=== PATIENT | male | born 1965 | race Caucasian/White ===

== ENCOUNTER 2022-02-19 00:53 | Inpatient (IN) ==
[~2022-02-19 00:53] MED LIST: *HR* Heparin 10,000 UNIT/10 ML VIAL ONE; 0.9 % Sodium Chloride 2,000 ML ONE; Heparin 1,000 UNITS/500 mL 500 ML ONE; Iopamidol - 370 200 ML INFUS..BTL ONE; Nitroglycerin 1,000 MCG/5 ML VIAL IV ONE
[2022-02-19] MEDS ORDERED: Iopamidol - 370 500 ML MLS IVP ONE (00:58)
[2022-02-19] MEDS ORDERED: *HR* FentaNYL (PF) 100 MCG/2 ML VIAL IVP ONE ×2 (00:58→01:27)
[2022-02-19] MEDS ORDERED: *HR* Ticagrelor 90 MG TABLET PO ONE (01:08)
[2022-02-19] MEDS ORDERED: *HR* Heparin 5,000 UNIT/ML VIAL IVP ONE (01:08)
[2022-02-19] MEDS ORDERED: Iopamidol - 370 200 ML INFUS..BTL ONE ×2 (01:09→02:02)
[2022-02-19] MEDS ORDERED: *HR* Heparin 10,000 UNIT/10 ML VIAL ONE ×2 (01:09→01:51)
[2022-02-19] MEDS ORDERED: Nitroglycerin 1,000 MCG/5 ML VIAL IV ONE (01:09)
[2022-02-19] MEDS ORDERED: 0.9 % Sodium Chloride 1,000 ML ONE ×2 (01:09→01:20)
[2022-02-19] MEDS ORDERED: Heparin 1,000 UNITS/500 mL 500 ML ONE (01:09)
[2022-02-19 01:11] LABS: Basophils # 0.1 K/mcL (0.0-0.2); Basophils % 0.5 %; Eosinophils # 0.4 K/mcL (0.0-0.6); Eosinophils % 2.7 %; Hematocrit 42.7 % (37.5-50.1); Hemoglobin 14.4 g/dL (12.9-16.9); Immature Granulocytes % 0.6 % (0-4); Lymphocytes # 4.6 K/mcL (0.6-4.6); Lymphocytes % 31.5 %; Mean Corpuscular HGB Conc 33.7 g/dL (31.6-35.5); Mean Corpuscular Hemoglobin 32.4 pg (28.0-33.3); Mean Platelet Volume 9.1 fL (9.4-12.4); Monocytes # 1.3 K/mcL (0.0-1.3); Monocytes % 8.7 %; Neutrophils # 8.1 K/mcL (1.6-8.9); Platelet Count 315 K/mcL (140-400); Red Blood Count 4.45 M/mcL (4.19-5.50); Red Cell Distribution Width 13.9 % (11.5-14.5); White Blood Count 14.5 K/mcL (4.3-11.1)
[2022-02-19] MEDS ORDERED: Heparin 25,000UNIT/250ML 1/2NS 25,000 UNIT/250 ML IV.SOLN IVC SCH (01:15)
[2022-02-19] MEDS ORDERED: *HR* FentaNYL (PF) 100 MCG/2 ML VIAL ONE (01:20)
[2022-02-19] MEDS ORDERED: *HR* Midazolam HCl 2 MG/2 ML VIAL ONE (01:20)
[2022-02-19] MEDS ORDERED: Tirofiban 12.5 MG/250ML 12.5 MG/250 ML BAG ONE (01:20)
[2022-02-19] MEDS ORDERED: *HR* Atropine Sulfate 1 MG/10 ML SYRINGE ONE (01:21)
[2022-02-19 01:24] LABS: INR 1.1; Prothrombin Time 11.7 Seconds (9.4-12.1)
[2022-02-19 01:25] LABS: Heparin anti-factor XA UFH < 0.04 IU/mL (0.30-0.70)
[2022-02-19 01:27] LABS: Activated Partial Thrombo Time 26.4 Seconds (26.0-36.0)
[2022-02-19 01:33] LABS: Alanine Aminotransferase 12 Units/L (7-52); Albumin 3.9 g/dL (3.5-5.7); Albumin/Globulin Ratio 1.5 (1.1-2.2); Alkaline Phosphatase 63 Units/L (34-104); Aspartate Amino Transferase 12 Units/L (13-39); BUN/Creatinine Ratio 9 (6-26); Bilirubin,Total 0.4 mg/dL (0.3-1.0); Blood Urea Nitrogen 9 mg/dL (6-20); Calcium 8.4 mg/dL (8.6-10.3); Carbon Dioxide 27 mEq/L (23-29); Chloride 107 mEq/L (98-107); Globulin 2.6 g/dL (2.4-3.5); Glucose 111 mg/dL (70-105); Osmolality,Calculated 289 (280-300); Potassium 3.7 mEq/L (3.5-5.1); Sodium 140 mEq/L (136-145); Total Protein 6.5 g/dL (6.4-8.9)
[2022-02-19 01:34] LABS: Troponin I < 0.03 ng/mL (< 0.04)
[2022-02-19] MEDS ORDERED: Ondansetron 4 MG/2 ML VIAL ONE (01:40)
[2022-02-19 01:45] LABS: Platelet Estimate Normal (Normal)
[2022-02-19 05:54] LABS: Basophils # 0.1 K/mcL (0.0-0.2); Basophils % 0.3 %; Eosinophils % 0.2 %; Hematocrit 43.5 % (37.5-50.1); Hemoglobin 14.7 g/dL (12.9-16.9); Immature Granulocytes % 0.6 % (0-4); Lymphocytes # 1.4 K/mcL (0.6-4.6); Lymphocytes % 9.4 %; Mean Corpuscular HGB Conc 33.8 g/dL (31.6-35.5); Mean Corpuscular Hemoglobin 32.5 pg (28.0-33.3); Mean Corpuscular Volume 96.2 fL (83.0-100.0); Mean Platelet Volume 9.1 fL (9.4-12.4); Monocytes % 6.3 %; Neutrophils # 12.8 K/mcL (1.6-8.9); Platelet Count 300 K/mcL (140-400); Red Blood Count 4.52 M/mcL (4.19-5.50); Red Cell Distribution Width 13.9 % (11.5-14.5); Segmented Neutrophils % 83.2 %; White Blood Count 15.4 K/mcL (4.3-11.1)
[2022-02-19 06:09] LABS: BUN/Creatinine Ratio 14 (6-26); Blood Urea Nitrogen 11 mg/dL (6-20); Calcium 8.2 mg/dL (8.6-10.3); Carbon Dioxide 22 mEq/L (23-29); Chloride 107 mEq/L (98-107); Glucose 101 mg/dL (70-105); Osmolality,Calculated 280 (280-300); Potassium 4.4 mEq/L (3.5-5.1); Sodium 135 mEq/L (136-145)
[2022-02-19] MEDS ORDERED: Metoprolol XL (24 HR) Succ 25 MG TAB.ER.24H PO SCH (09:00)
[2022-02-19] MEDS: *HR* Ticagrelor 90 MG TABLET PO SCH ×2 (09:20→20:01)
[2022-02-19] MEDS: Aspirin 81 MG TAB.CHEW PO SCH (09:20)
[2022-02-19] MEDS: Metoprolol XL (24 HR) Succ 25 MG TAB.ER.24H PO SCH (09:21)
[2022-02-19] MEDS ORDERED: Metoprolol XL (24 HR) Succ 25 MG TAB.ER.24H PO ONE (09:28)
[2022-02-19] MEDS: lisinopriL 5 MG TABLET PO SCH (11:20)
[2022-02-19] MEDS ORDERED: levoFLOXacin 750 MG/150 ML 750 MG/150 ML BAG IVPB ONE (14:00)
[2022-02-20] MEDS: Metoprolol XL (24 HR) Succ 25 MG TAB.ER.24H PO SCH (07:56)
[2022-02-20] MEDS: *HR* Ticagrelor 90 MG TABLET PO SCH ×2 (07:56→20:27)
[2022-02-20] MEDS: Aspirin 81 MG TAB.CHEW PO SCH (07:56)
[2022-02-20] MEDS: lisinopriL 5 MG TABLET PO SCH (07:56)
[2022-02-20] MEDS ORDERED: Spironolactone 25 MG TABLET PO SCH (09:00)
[2022-02-20] MEDS: levoFLOXacin 750 MG TABLET PO SCH (10:09)
[2022-02-20 13:59] LABS: Basophils # 0.1 K/mcL (0.0-0.2); Basophils % 0.4 %; Eosinophils # 0.2 K/mcL (0.0-0.6); Eosinophils % 1.2 %; Hemoglobin 15.3 g/dL (12.9-16.9); Immature Granulocytes % 0.8 % (0-4); Lymphocytes # 1.5 K/mcL (0.6-4.6); Lymphocytes % 10.3 %; Mean Corpuscular Hemoglobin 31.7 pg (28.0-33.3); Mean Corpuscular Volume 93.4 fL (83.0-100.0); Mean Platelet Volume 9.2 fL (9.4-12.4); Monocytes # 1.1 K/mcL (0.0-1.3); Monocytes % 7.8 %; Neutrophils # 11.2 K/mcL (1.6-8.9); Platelet Count 302 K/mcL (140-400); Red Blood Count 4.82 M/mcL (4.19-5.50); Red Cell Distribution Width 13.5 % (11.5-14.5); Segmented Neutrophils % 79.5 %; White Blood Count 14.1 K/mcL (4.3-11.1)
[2022-02-20 14:44] LABS: BUN/Creatinine Ratio 13 (6-26); Blood Urea Nitrogen 12 mg/dL (6-20); Calcium 8.6 mg/dL (8.6-10.3); Carbon Dioxide 20 mEq/L (23-29); Chloride 107 mEq/L (98-107); Glucose 136 mg/dL (70-105); Osmolality,Calculated 282 (280-300); Sodium 135 mEq/L (136-145)
[2022-02-21 04:11] VITALS: TEMP 97.8; O2SAT 95
[2022-02-21 05:53] LABS: Basophils # 0.1 K/mcL (0.0-0.2); Basophils % 0.9 %; Eosinophils # 0.4 K/mcL (0.0-0.6); Eosinophils % 3.1 %; Hematocrit 46.4 % (37.5-50.1); Hemoglobin 15.8 g/dL (12.9-16.9); Immature Granulocytes % 1.4 % (0-4); Lymphocytes # 2.3 K/mcL (0.6-4.6); Mean Corpuscular HGB Conc 34.1 g/dL (31.6-35.5); Mean Corpuscular Hemoglobin 32.2 pg (28.0-33.3); Mean Corpuscular Volume 94.5 fL (83.0-100.0); Mean Platelet Volume 9.3 fL (9.4-12.4); Monocytes # 1.2 K/mcL (0.0-1.3); Monocytes % 9.9 %; Neutrophils # 7.5 K/mcL (1.6-8.9); Platelet Count 292 K/mcL (140-400); Red Blood Count 4.91 M/mcL (4.19-5.50); Red Cell Distribution Width 13.6 % (11.5-14.5); Segmented Neutrophils % 64.7 %; White Blood Count 11.6 K/mcL (4.3-11.1)
[2022-02-21] MEDS ORDERED: *HR* Heparin 5,000 UNIT/ML VIAL SQ SCH (06:00)
[2022-02-21 06:17] LABS: BUN/Creatinine Ratio 14 (6-26); Blood Urea Nitrogen 12 mg/dL (6-20); Calcium 8.7 mg/dL (8.6-10.3); Carbon Dioxide 23 mEq/L (23-29); Chloride 107 mEq/L (98-107); Glucose 93 mg/dL (70-105); Osmolality,Calculated 283 (280-300); Potassium 3.9 mEq/L (3.5-5.1); Sodium 137 mEq/L (136-145)
[2022-02-21 08:15] VITALS: BP 101/75
[2022-02-21] MEDS: *HR* Ticagrelor 90 MG TABLET PO SCH (08:16)
[2022-02-21] MEDS: levoFLOXacin 750 MG TABLET PO SCH (08:16)
[2022-02-21 08:26] VITALS: PULSE 79
[2022-02-21] MEDS ORDERED: Nicotine 14 MG PATCH.TD24 TD SCH (09:00)
[2022-02-21] MEDS ORDERED: Metoprolol XL (24 HR) Succ 25 MG TAB.ER.24H PO SCH (09:00)
[2022-02-21] MEDS ORDERED: Aspirin 81 MG TAB.CHEW PO SCH (09:00)
[2022-02-21] MEDS ORDERED: Spironolactone 25 MG TABLET PO SCH (09:00)
[2022-02-21] MEDS ORDERED: lisinopriL 5 MG TABLET PO SCH (09:00)
== END 2022-02-21 12:15 | disposition home or self-care (01) | DRG 246 ==
LOC: ICNU 00:53 → EMEROOARM 00:53 → ICNU 01:33
PROVIDERS: ADMIT Internal Medicine Interventional Cardiology; ATTEND Internal Medicine Cardiovascular Disease

== ENCOUNTER 2022-04-09 14:02 | Observation (INO) ==
[2022-04-09] MEDS ORDERED: Aspirin 81 MG TAB.CHEW PO ONE (14:11)
[2022-04-09] MEDS ORDERED: Iopamidol - 370 200 ML INFUS..BTL ONE (14:15)
[2022-04-09] MEDS ORDERED: *HR* Heparin 10,000 UNIT/10 ML VIAL ONE (14:15)
[2022-04-09] MEDS ORDERED: 0.9 % Sodium Chloride 2,000 ML ONE (14:15)
[2022-04-09] MEDS ORDERED: Heparin 1,000 UNITS/500 mL 500 ML ONE (14:15)
[2022-04-09] MEDS ORDERED: Nitroglycerin 1,000 MCG/5 ML VIAL IV ONE (14:15)
[2022-04-09] MEDS ORDERED: *HR* FentaNYL (PF) 100 MCG/2 ML VIAL ONE (14:35)
[2022-04-09] MEDS ORDERED: *HR* Midazolam HCl 2 MG/2 ML VIAL ONE (14:36)
[2022-04-09 14:40] LABS: Basophils # 0.1 K/mcL (0.0-0.2); Basophils % 0.8 %; Eosinophils # 0.2 K/mcL (0.0-0.6); Eosinophils % 2.3 %; Hematocrit 44.7 % (37.5-50.1); Immature Granulocytes % 0.7 % (0-4); Lymphocytes % 21.5 %; Mean Corpuscular HGB Conc 33.6 g/dL (31.6-35.5); Mean Corpuscular Hemoglobin 31.3 pg (28.0-33.3); Mean Corpuscular Volume 93.1 fL (83.0-100.0); Mean Platelet Volume 9.2 fL (9.4-12.4); Monocytes # 0.8 K/mcL (0.0-1.3); Monocytes % 8.8 %; Platelet Count 284 K/mcL (140-400); Red Cell Distribution Width 13.4 % (11.5-14.5); Segmented Neutrophils % 65.9 %; White Blood Count 9.1 K/mcL (4.3-11.1)
[2022-04-09 14:46] LABS: INR 1.1; Prothrombin Time 12.3 Seconds (9.4-12.1)
[2022-04-09 14:49] LABS: Activated Partial Thrombo Time 32.2 Seconds (26.0-36.0)
[2022-04-09 15:02] LABS: Alanine Aminotransferase 27 Units/L (7-52); Albumin 4.2 g/dL (3.5-5.7); Albumin/Globulin Ratio 1.6 (1.1-2.2); Alkaline Phosphatase 53 Units/L (34-104); Aspartate Amino Transferase 19 Units/L (13-39); BUN/Creatinine Ratio 14 (6-26); Bilirubin,Total 0.5 mg/dL (0.3-1.0); Blood Urea Nitrogen 14 mg/dL (6-20); Calcium 9.1 mg/dL (8.6-10.3); Carbon Dioxide 25 mEq/L (23-29); Chloride 107 mEq/L (98-107); Globulin 2.6 g/dL (2.4-3.5); Glucose 101 mg/dL (70-105); Osmolality,Calculated 285 (280-300); Potassium 4.4 mEq/L (3.5-5.1); Sodium 137 mEq/L (136-145); Total Protein 6.8 g/dL (6.4-8.9); Troponin I < 0.03 ng/mL (< 0.04)
[2022-04-09] MEDS ORDERED: Ondansetron ODT 4 MG TAB.RAPDIS SL PRN (15:14)
[2022-04-09] MEDS ORDERED: Acetaminophen 325 MG TABLET PO PRN (15:14)
[2022-04-09] MEDS ORDERED: MOM Conc 10 ML UD.LIQ PO PRN (15:14)
[2022-04-09] MEDS ORDERED: Mag Hydrox/Al Hydrox/Simeth 30 ML UDC PO PRN (15:14)
[2022-04-09] MEDS ORDERED: Naloxone 0.4 MG/ML INJ IVP PRN (15:14)
[2022-04-09 15:35] VITALS: TEMP 97.8
[2022-04-09 16:51] VITALS: BP 105/73; PULSE 79; O2SAT 93
[2022-04-10] MEDS ORDERED: *HR* Enoxaparin 40 MG/0.4 ML SYRINGE SQ SCH (07:00)
== END 2022-04-09 17:17 | disposition home or self-care (01) ==
LOC: EMEROOARM 14:02 → 3BNU 14:02
PROVIDERS: ADMIT Internal Medicine Cardiovascular Disease; ATTEND Internal Medicine Cardiovascular Disease